=== PATIENT | male | born 1970 | race Caucasian/White ===

== ENCOUNTER 2018-11-24 16:05 | Emergency (ER) ==
[2018-11-24 16:17] VITALS: BP 119/70; TEMP 97.4; BMI 20.8
[2018-11-24] MEDS ORDERED: LIDOCAINE HCL 1% SDV SUBCUT STA (17:18)
--- NOTE | 2018-11-24 17:19 | ED.PDOC ---
General ED Provider: Dr. BELL MCDONALD Chief Complaint: Bite Stated Complaint: Swelling and reddness of skin lower abdomen Time Seen by Physician: 17:05 Mode of Arrival: Walk-In Information Source: Patient Exam Limitations: No limitations Primary Care Provider: LIYA KEITA Nursing and Triage Documentation Reviewed and Agree: Yes Does patient meet sepsis criteria?: No If yes, has appropriate treatment been initiated?: Yes System Inflammatory Response Syndrome: Not Applicable Sepsis Protocol: For patient's 13 years and over: Temp is 96.8 and below OR 101 and greater Pulse >90 BPM Resp >20/minute Acutely Altered Mental Status Are patient's symptoms suggestive of a new infection, such as: -Pneumonia -Skin, Soft Tissue -Endocarditis -UTI -Bone, Joint Infection -Implantable Device -Acute Abdominal Infection -Wound Infection -Meningitis -Blood Stream Catheter Infection -Unknown Skin Complaint Exam - Skin/Soft Tissue Complaint/Exam Onset/Duration: 24 hr Symptoms Are: Still present Timing: Constant Initial Severity: Moderate Current Severity: Moderate Location: RLQ Abdominal wall Character: Reports: Redness, Swelling, Raised, Painful Aggravating: Reports: Touch Alleviating: Reports: None Associated Signs and Symptoms: Reports: Drainage, Tenderness Related History: Denies: Similar episode Related Surgical History: Reports: None Recent Exposure to Others w/Similar Symptoms: Yes Skin Findings: Present: Erythema, Induration, Pustules Joint Tenderness Present: No Differential Diagnoses: Abscess, Cellulitis Review of Systems - Review Of Systems Constitutional: Reports: No symptoms Eyes: Reports: No symptoms Ears, Nose, Mouth, Throat: Reports: No symptoms Respiratory: Reports: No symptoms Cardiac: Reports: No symptoms GI: Reports: No symptoms : Reports: No symptoms Musculoskeletal: Reports: No symptoms Skin: Reports: No symptoms Neurological: Reports: No symptoms Endocrine: Reports: No symptoms Hematologic/Lymphatic: Reports: No symptoms All Other Systems: Reviewed and Negative Past Medical History - Past Medical History Previously Healthy: Yes Endocrine: Reports: None Cardiovascular: Reports: None Respiratory: Reports: None Hematological: Reports: None Gastrointestinal: Reports: None Genitourinary: Reports: None Neuro/Psych: Reports: None Musculoskeletal: Reports: None Cancer: Reports: None - Surgical History General Surgical History: Reports: None - Family History Family History: Reports: None - Social History Smoking Status: Current every day smoker, Heavy tobacco smoker Hx Substance Use: No Alcohol Screening: Occasionally - Immunizations Tetanus Shot up to Date: No Physical Exam - Physical Exam Appearance: Well-appearing, No pain distress, Well-nourished, Thin Ill-appearing: None Pain Distress: Mild Eyes: ANALY, EOMI, Conjunctiva clear ENT: Ears normal, Nose normal, Oropharynx normal Respiratory: Airway patent, Breath sounds clear, Breath sounds equal, Respirations nonlabored Cardiovascular: RRR, Pulses normal, No rub, No murmur GI/: Soft, Nontender, No masses, Bowel sounds normal, No Organomegaly Musculoskeletal: Normal strength, ROM intact, No edema, No calf tenderness Skin: Warm, Dry, Normal color Neurological: Sensation intact, Motor intact, Reflexes intact, Cranial nerves intact, Alert, Oriented Psychiatric: Affect appropriate, Mood appropriate Critical Care Note - Critical Care Note Total Time (mins): 60 Course - Course Orders, Labs, Meds: Orders Category Date Time Status WOUND CULTURE Stat LAB 11/24/18 17:10 Completed Cephalexin [Keflex] MEDS 11/24/18 18:24 Discontinued 500 mg PO ONCE STA Lidocaine HCl/Pf [Lidocaine HCl 1% Sdv] MEDS 11/24/18 17:18 Discontinued 5 ml SUBCUT ONCE STA Medications Discontinued Medications Generic Name Dose Route Start Last Admin Trade Name Freq PRN Reason Stop Dose Admin Cephalexin 500 mg 11/24/18 18:24 11/24/18 18:31 Keflex PO 11/24/18 18:25 500 mg ONCE STA Administration Lidocaine HCl 5 ml 11/24/18 17:18 11/24/18 18:07 Lidocaine Hcl 1% Sdv SUBCUT 11/24/18 17:19 5 ml ONCE STA Administration Vital Signs: Temp Pulse Resp BP Pulse Ox 11/24/18 16:05 97.4 F L 85 18 119/70 95 Departure - Departure Time of Disposition: 18:15 Disposition: HOME SELF-CARE Discharge Problem: Infected epithelial inclusion cyst, Cellulitis Instructions: Cellulitis (ED), Epidermal Inclusion Cysts (ED) Condition: Good Pt referred to PMD for follow-up: Yes (Dr Grier on Monday morning) IPMP verified?: No Additional Instructions: Wound Care Change dressing after 12 hours Take Antibiotic as directed Off work 2 days. follow up with PCP in 2 days Prescriptions: Cephalexin [Keflex] 500 mg PO TID 10 Days #30 capsule Cephalexin [Keflex] 500 mg PO TID #30 capsule Ketorolac Tromethamine [Toradol] 10 mg PO Q6H PRN #20 tablet PRN Reason: Pain Ketorolac Tromethamine [Toradol] 10 mg PO Q6H PRN #20 tablet PRN Reason: Pain Allergies/Adverse Reactions: Allergies No Known Allergies Allergy (Verified 11/24/18 16:15) Home Medications: Ambulatory Orders Cephalexin [Keflex] 500 mg PO TID #30 capsule 11/24/18 Cephalexin [Keflex] 500 mg PO TID 10 Days #30 capsule 11/24/18 Ketorolac Tromethamine [Toradol] 10 mg PO Q6H PRN #20 tablet 11/24/18 Ketorolac Tromethamine [Toradol] 10 mg PO Q6H PRN #20 tablet 11/24/18 Disposition Discussed With: Patient, Family
[2018-11-24] MEDS ORDERED: KEFLEX PO STA (18:24)
== END 2018-11-24 18:35 | disposition home or self-care (01) ==
LOC: ED 16:05
DX: L72.0 Epidermal cyst (principal); L03.311 Cellulitis of abdominal wall
CPT/HCPCS: 87070; 87186; 99283